=== PATIENT | male | born 1960 | race Caucasian/White ===

== ENCOUNTER 2023-03-09 12:25 | Observation (INO) ==
[2023-03-09] MEDS ORDERED: LORazepam 2 MG/1 ML VIAL IV STA (12:44)
[2023-03-09] MEDS ORDERED: SODIUM CHLORIDE 0.9% 500 ML IV SCH (12:45)
[2023-03-09 13:00] LABS: Basophils # (auto) 0.04 K/uL (0-0.2); Basophils % (auto) 0.6 %; Eosinophils # (auto) 0.16 K/uL (0-0.50); Eosinophils % (auto) 2.5 %; Hematocrit (blood only) 42.1 % (42.0-52.0); Immature Granulocytes # (auto) 0.03 K/uL (0.01-0.20); Immature Granulocytes % (auto) 0.5 %; Lymphocytes % (auto) 33.1 %; Mean Corpuscular Hemoglobin 31.8 pg (25.0-34.0); Mean Corpuscular Hgb Conc 35.6 g/dL (32.0-36.0); Mean Corpuscular Volume 89.4 fL (80.0-100.0); Mean Platelet Volume 10.7 fL (9.4-12.4); Monocytes # (auto) 0.36 K/uL (0.11-0.59); Monocytes % (auto) 5.7 %; Neutrophils # (auto) 3.65 K/uL (1.40-6.50); Neutrophils % (auto) 57.6 %; Platelet Count 226 K/uL (130-400); RDW Coefficient of Variation 12.5 % (11.5-14.5); RDW Standard Deviation 41.1 fL (36.4-46.3); Red Blood Count 4.71 M/uL (4.70-6.10); White Blood Count 6.34 K/ul (4.8-10.8)
[2023-03-09 13:07] LABS: Albumin Globulin Ratio 1.9 (0.9-2); Albumin Level 4.6 gm/dl (3.4-5.0); BUN Creatinine Ratio 17.9 (10-20); Bilirubin,Total 0.5 mg/dl (0.2-1.0); Calcium 9.4 mg/dl (8.6-10.3); Creatinine Clr Calc Pharmacy 77.1 ml/min; Globulin 2.4 gm/dl (2.5-4.0); Potassium 3.2 mmol/L (3.5-5.1)
[2023-03-09 13:13] LABS: Troponin I High Sensitivity 5.6 pg/ml (0-20)
--- NOTE | 2023-03-09 13:13 | Emergency Department Note ---
Impression & Plan Weakness, Tremor, Epilepsy, Ambulatory dysfunction ED Provider Note Provider: Mitchel Mulligan MD DATE OF SERVICE: 03/09/2023 CHIEF COMPLAINT: Weakness, migraine, seizure HISTORY OF PRESENT ILLNESS: Patient is a 62-year-old gentleman history of hypertension, BPH, migraines, and epilepsy presenting here today via ambulance from his home. Under significant stress over the past week regarding dog's illness and dog had to be put down yesterday. Family in town for this. Has had decent migraine for most of the weekend had a Toradol shot yesterday as well as been on some steroid and olanzapine for cycle breaker. Follows with neurology at [facility] in [place]. Has PCP in the [place] area. Evidently while the dog was being put down yesterday had a generalized event where he remembers things but could not move his body and had generalized shaking. This lasted briefly. No trauma reported. Has had recurrent episodes of some twitching of his arm and this morning some twitching of his arm and neck. Has a history of some focal seizures like this. No other grand mal seizures or loss of consciousness reported. Denies recent illness. Did not sleep well last night. Did have breakfast okay but then twitching events occurred this morning and he became very weak and was unable to get up and get around. Currently her states his headaches actually been improved since the Toradol shot yesterday earlier but now having generalized weakness. Denies numbness. Denies headache or dizzin ess. Denies any associated pain. States compliance with medications including meds this morning. PAST MEDICAL HISTORY: As noted above MEDICATIONS: Reviewed home medications with him and his at bedside SOCIAL HISTORY: PHYSICAL EXAM: GENERAL: alert and oriented in no acute distress on stretcher fatigued in appearance with at bedside Head: normocephalic and atraumatic EYES: No injection, discharge or icterus. PERRL, EOMI. NECK: Trachea midline. Supple. ENT: Mucous membranes pink and moist. LUNGS: Airway patent. No retractions. Breath sounds clear with good air entry bilaterally. HEART: Regular rate and rhythm. No chest wall tenderness ABDOMEN: Soft and non-tender, without guarding or rebound. SKIN: Acyanotic, warm, dry, without rashes EXTREMITIES: Without swelling, tenderness or deformity NEUROLOGICAL: No aphasia. No facial droop or slurred speech. Moving all extremities but 3 out of 4 strength in all 4 extremities. Barely able to lift legs off bed to gravity. Weakened handgrip symmetric bilaterally EK bpm normal sinus rhythm. No PVC or PAC. No acute ST segment elevation or depression with a QTc of 444. CONTINUOUS CARDIAC MONITORING: was ordered and showed a heart rate of 60s bpm in normal sinus rhythm Patient's laboratory studies and imaging reviewed. Differential includes Infection, dehydration, metabolic abnormality, hypo/hyperglycemia, electrolyte disturbance, cardiac sources, neurologic, as well as other pathologies. IMPRESSION/MEDICAL DECISION MAKING: Patient without significant focal deficit. No trauma reported. Has some generalized weakness. No headache. Does have a significant history of epilepsy as well as migraines. Unclear if this was a true generalized event yesterday versus may be some focal seizures given his history that have been occurring. Has been under significant stress and not sleeping well. Denies infectious symptoms. Basic blood work obtained. We will give a small mount of fluid as well as a little bit of Ativan to help with symptoms. Some of this may be related to history deprivation and stress level. Does not appear meningitic. Doubt CVA given lack of focality of his exam. Blood work is anemia or leukocytosis. Slight hypokalemia very minimal. No signs of significant electrolyte abnormality or anion gap. No signs of hepatitis or troponin elevation. CK just above the normal baseline possibly slightly increased due to his increased muscle activity recently. Negative COV ID. Topiramate and lamotrigine level send out. Reassessed the patient is having some improvement after an hour or 2. Did rest some here. Attempted to sit him up and he is able to do this but unable to stand due to weakness. Occasionally having some twitching of his legs but conscious during these periods. Not clear that this is seizure activity. Discussed with him and his options this point including further observation here and he wished to wait for another hour to arrest and see if things continue to improve. On reassessment after an hour and a half the patient still states he feels some internal energy and that he is not strong enough to sit up and walk. Discussed staying for further observation and neurological evaluation. Again some component of stress stress of the last several days likely contributing but not clearly having multiple seizures here. DIAGNOSIS: Weakness, tremor, epilepsy DISPOSITION: Hospitalist will evaluate Patient was agreeable with this plan. Past Med/Surg History Medical History (Updated 04/15/23 @ 17:50 by Mitchel Mulligan M.D.) BPH (benign prostatic hyperplasia) GERD (gastroesophageal reflux disease) Hx of migraines Hypertension Surgical History (Updated 03/23/22 @ 14:07 by Donnie Bhatka) No significant past surgical history Social History (Updated 03/23/22 @ 14:07 by Donnie Bhakta) Smoking Status: Current some day smoker Tobacco Type: Cigars Preferred Language: German marital status: current occupational status: retired Feels Safe at Home: Yes Allergies Allergies Allergy/AdvReac Type Severity Reaction Status Date / Time Penicillins Allergy Intermediate HIVES A Verified 03/09/23 15:26 CHILD moxifloxacin [From Avelox] AdvReac Severe passed out Verified 03/09/23 15:26 Home Meds Home Medications Medication Instructions Recorded Confirmed albuterol sulfate 90 mcg/actuation 90 mcg inhalation DIRECTED PRN 03/23/22 03/09/23 aerosol inhaler (Ventolin HFA) Shortness Of Breath Or Wheezing amitriptyline 25 mg tablet 25 mg PO HS 03/23/22 03/09/23 lamotrigine 100 mg tablet 100 mg PO BID 03/23/22 03/09/23 metoprolol succinate 50 mg 50 mg PO QAM 03/23/22 03/09/23 tablet,extended release 24 hr pantoprazole 40 mg tablet,delayed 40 mg PO QAM 03/23/22 03/09/23 release rizatriptan 10 mg disintegrating 10 mg PO QAM PRN Migraine Headache 03/23/22 03/09/23 tablet tamsulosin 0.4 mg capsule 0.4 mg PO QPM 03/23/22 03/09/23 topiramate 200 mg capsule,extended 200 mg PO QAM 03/23/22 03/09/23 release 24 hr (Trokendi XR) triamterene 75 1 tab PO QAM 03/23/22 03/09/23 mg-hydrochlorothiazide 50 mg tablet Lactobacillus acidophilus 10 10,000 mmu cells PO DAILY 03/09/23 03/09/23 billion cell capsule (Probiotic) aspirin 81 mg tablet,delayed 81 mg PO DAILY 03/09/23 03/09/23 release atogepant 60 mg tablet (Qulipta) 60 mg PO DAILY 03/09/23 03/09/23 cholecalciferol (vitamin D3) 10 10 mcg PO DAILY 03/09/23 03/09/23 mcg (400 unit) capsule (Vitamin D3) multivitamin 1 tab PO DAILY 03/09/23 03/09/23 olanzapine 2.5 mg tablet See Rx Instructions .Route .COMPLEX 03/09/23 03/09/23 omega-3 fatty acids 1,250 mg 1,250 mg PO DAILY 03/09/23 03/09/23 capsule onabotulinumtoxinA 200 unit 0 unit subcut DIRECTED 03/09/23 03/09/23 solution for injection (Botox) ondansetron HCl 4 mg tablet 4 mg PO DIRECTED PRN N/V WITH 03/09/23 03/09/23 MIGRAINE MARTINEZ. Results & Data (ED) Vital Signs Vital Signs - 24 hr 03/09/23 12:36 03/09/23 12:44 03/09/23 12:48 Temperature 36.8 C Temperature Source Oral Pulse Rate 68 Pulse Rate from SpO2 Sensor Pulse Rhythm Regular Pulse Strength Normal Respiratory Rate 20 Respiratory Effort / Characteristics Non-Labored Spontaneous Respiratory Depth Normal Blood Pressure 158/91 H Blood Pressure Mean 113 Pulse Oximetry 97 92 91 Oxygen Delivery Method Room Air Room Air Room Air Oxygen Flow Rate 0 Sepsis Recent Fever Within 48 Hours No Sepsis New/Unexplained Change in Mental Status N/A Sepsis Action Taken by Nursing No Action Required 03/09/23 13:00 03/09/23 13:30 03/09/23 14:00 Temperature Temperature Source Pulse Rate 65 68 64 Pulse Rate from SpO2 Sensor 69 64 Pulse Rhythm Pulse Strength Respiratory Rate 17 17 Respiratory Effort / Characteristics Respiratory Depth Blood Pressure 131/86 122/72 Blood Pressure Mean 101 88 Pulse Oximetry 98 98 Oxygen Delivery Method Oxygen Flow Rate Sepsis Recent Fever Within 48 Hours Sepsis New/Unexplained Change in Mental Status Sepsis Action Taken by Nursing 03/09/23 14:30 03/09/23 17:13 Temperature Temperature Source Pulse Rate 62 83 Pulse Rate from SpO2 Sensor 64 Pulse Rhythm Pulse Strength Respiratory Rate 13 Respiratory Effort / Characteristics Respiratory Depth Blood Pressure 141/69 H Blood Pressure Mean 93 Pulse Oximetry 97 Oxygen Delivery Method Oxygen Flow Rate Sepsis Recent Fever Within 48 Hours Sepsis New/Unexplained Change in Mental Status Sepsis Action Taken by Nursing Laboratory Data 03/09/23 12:45 03/09/23 12:44 Lab Results 03/09/23 03/09/23 03/09/23 Range/Units 12:44 12:45 12:45 WBC 6.34 (4.8-10.8) K/ul RBC 4.71 (4.70-6.10) M/uL Hgb 15.0 (14.0-18.0) g/dl Hct 42.1 (42.0-52.0) % MCV 89.4 (80.0-100.0) fL MCH 31.8 (25.0-34.0) pg MCHC 35.6 (32.0-36.0) g/dL RDW Std Deviation 41.1 (36.4-46.3) fL RDW Coeff of [place] 12.5 (11.5-14.5) % Plt Count 226 (130-400) K/uL MPV 10.7 (9.4-12.4) fL Immature Gran % (Auto) 0.5 % Neut % (Auto) 57.6 % Lymph % (Auto) 33.1 % [place] % (Auto) 5.7 % Eos % (Auto) 2.5 % Baso % (Auto) 0.6 % Neut # (Auto) 3.65 (1.40-6.50) K/uL Lymph # (Auto) 2.10 (1.2-3.4) K/uL [place] # (Auto) 0.36 (0.11-0.59) K/uL Eos # (Auto) 0.16 (0-0.50) K/uL Baso # (Auto) 0.04 (0-0.2) K/uL Immature Gran # (Auto) 0.03 (0.01-0.20) K/uL Sodium 139 (136-145) mmol/L Potassium 3.2 L (3.5-5.1) mmol/L Chloride 103 (98-107) mmol/L Carbon Dioxide 25 (21-32) mmol/L Anion Gap 11 (3-11) BUN 20 (6-23) mg/dl Creatinine 1.12 (0.6-1.4) mg/dl Est Cr Clr Drug Dosing 77.1 ml/min Est GFR ( Amer) 80.0 ml/min Est GFR (Non-Af Amer) 69.0 ml/min BUN/Creatinine Ratio 17.9 (10-20) Glucose 149 H (70-99(Fasting)) mg/dl Calcium 9.4 (8.6-10.3) mg/dl Magnesium 2.0 (1.7-2.4) mg/dl Total Bilirubin 0.5 (0.2-1.0) mg/dl AST 34 (13-39) U/L ALT 37 (7-52) U/L Alkaline Phosphatase 58 (34-104) U/L Total Creatine Kinase 258 H (30-223) U/L Troponin I High Sens 5.6 (0-20) pg/ml Total Protein 7.0 (6.0-8.3) gm/dl Albumin 4.6 (3.4-5.0) gm/dl Globulin 2.4 L (2.5-4.0) gm/dl Albumin/Globulin Ratio 1.9 (0.9-2) TSH 0.622 (0.300-4.500) uIu/ml Urine Color Urine Appearance (Clear) Urine pH (4.5-7.5) Ur Specific [place] (1.000-1.030) Urine Protein (Negative) Urine Glucose (UA) (Negative) Urine Ketones (Negative) Urine Blood (Negative) Urine Nitrite (Negative) Urine Bilirubin (Negative) Urine Urobilinogen (Negative) Ur Leukocyte Esterase (Negative) SARS-CoV-2, RNA, NAAT (NEGATIVE) 03/09/23 03/09/23 Range/Units 12:54 13:34 WBC (4.8-10.8) K/ul RBC (4.70-6.10) M/uL Hgb (14.0-18.0) g/dl Hct (42.0-52.0) % MCV (80.0-100.0) fL MCH (25.0-34.0) pg MCHC (32.0-36.0) g/dL RDW Std Deviation (36.4-46.3) fL RDW Coeff of [place] (11.5-14.5) % Plt Count (130-400) K/uL MPV (9.4-12.4) fL Immature Gran % (Auto) % Neut % (Auto) % Lymph % (Auto) % [place] % (Auto) % Eos % (Auto) % Baso % (Auto) % Neut # (Auto) (1.40-6.50) K/uL Lymph # (Auto) (1.2-3.4) K/uL [place] # (Auto) (0.11-0.59) K/uL Eos # (Auto) (0-0.50) K/uL Baso # (Auto) (0-0.2) K/uL Immature Gran # (Auto) (0.01-0.20) K/uL Sodium (136-145) mmol/L Potassium (3.5-5.1) mmol/L Chloride (98-107) mmol/L Carbon Dioxide (21-32) mmol/L Anion Gap (3-11) BUN (6-23) mg/dl Creatinine (0.6-1.4) mg/dl Est Cr Clr Drug Dosing ml/min Est GFR ( Amer) ml/min Est GFR (Non-Af Amer) ml/min BUN/Creatinine Ratio (10-20) Glucose (70-99(Fasting)) mg/dl Calcium (8.6-10.3) mg/dl Magnesium (1.7-2.4) mg/dl Total Bilirubin (0.2-1.0) mg/dl AST (13-39) U/L ALT (7-52) U/L Alkaline Phosphatase (34-104) U/L Total Creatine Kinase (30-223) U/L Troponin I High Sens (0-20) pg/ml Total Protein (6.0-8.3) gm/dl Albumin (3.4-5.0) gm/dl Globulin (2.5-4.0) gm/dl Albumin/Globulin Ratio (0.9-2) TSH (0.300-4.500) uIu/ml Urine Color Yellow Urine Appearance Clear (Clear) Urine pH 7.5 (4.5-7.5) Ur Specific [place] 1.010 (1.000-1.030) Urine Protein Negative (Negative) Urine Glucose (UA) Negative (Negative) Urine Ketones Negative (Negative) Urine Blood Negative (Negative) Urine Nitrite Negative (Negative) Urine Bilirubin Negative (Negative) Urine Urobilinogen Negative (Negative) Ur Leukocyte Esterase Negative (Negative) SARS-CoV-2, RNA, NAAT NEGATIVE (NEGATIVE) Administered Medications Discontinued Medications Sodium Chloride (Nss) 500 mls @ 999 mls/hr IV .Q31M JALEN Stop: 03/09/23 13:15 Last Infusion: 03/09/23 14:46 Dose: 0 mls/hr Documented By: Admin: 03/09/23 13:29 Dose: 999 mls/hr Documented By: AM Lorazepam (Lorazepam 2 Mg/1 Ml Vial) 0.5 mg IV NOW STA Stop: 03/09/23 12:45 Last Admin: 03/09/23 13:29 Dose: 0.5 mg Documented By: AM Discharge Plan Visit Data Chief Complaint: Weakness Stated Complaint: WEAK, UNABLE TO AMBULATE ED Provider: Mitchel Mulligan Discharge Problem: Weakness, Tremor, Epilepsy, Ambulatory dysfunction Patient Disposition: Being Evaluated by Hospitalist Forms Stand Alone Forms: My [facility] Prescriptions Prescriptions: No Action metoprolol succinate 50 mg tablet extended release 24 hr 50 mg PO QAM amitriptyline 25 mg tablet 25 mg PO HS tamsulosin 0.4 mg capsule 0.4 mg PO QPM rizatriptan 10 mg tablet,disintegrating 10 mg PO QAM PRN (Reason: Migraine Headache) pantoprazole 40 mg tablet,delayed release (DR/EC) 40 mg PO QAM triamterene-hydrochlorothiazid 75-50 mg tablet 1 tab PO QAM albuterol sulfate [Ventolin HFA] 90 mcg/actuation HFA aerosol inhaler 90 mcg INHALATION DIRECTED PRN (Reason: Shortness Of Breath Or Wheezing) Rx Instructions: 2 to 4 puffs as needed lamotrigine 100 mg tablet 100 mg PO BID topiramate [Trokendi XR] 200 mg capsule,extended release 24hr 200 mg PO QAM multivitamin Tablet 1 tab PO DAILY ondansetron HCl [Zofran] 4 mg Tablet 4 mg PO DIRECTED PRN (Reason: N/V WITH MIGRAINE MARTINEZ.) olanzapine 2.5 mg tablet See Rx Instructions .ROUTE .COMPLEX Rx Instructions: STARTED 03/03/23 FOR 7 DAYS, ENDS 03/10/23. mg aspirin 81 mg Tablet,Delayed Release (Dr/Ec) 81 mg PO DAILY cholecalciferol (vitamin D3) [Vitamin D3] 10 mcg (400 unit) Capsule 10 mcg PO DAILY omega-3 fatty acids 1,250 mg Capsule 1,250 mg PO DAILY Botox 200 unit Recon Soln 0 unit subcut DIRECTED Rx Instructions: PER PT "QUARTERLY" Probiotic 10 billion cell Capsule 10,000 mmu cells PO DAILY Qulipta 60 mg tablet 60 mg PO DAILY Referrals Referrals: Mitchell Gonsalves MD [Primary Care Provider] -
[2023-03-09 13:56] LABS: Appearance Urine Clear (Clear); Bilirubin Urine Negative (Negative); Blood Urine Negative (Negative); Color Urine Yellow; Glucose Urine UA Negative (Negative); Ketones Urine Negative (Negative); Leukocyte Esterase Urine Negative (Negative); Nitrite Urine Negative (Negative); Protein Urine Negative (Negative); Urobilinogen Urine Negative (Negative); pH Urine 7.5 (4.5-7.5)
--- NOTE | 2023-03-09 18:05 | History & Physical Report ---
Date of Service March 09, 2023 Assessment & Plan (1) Weakness: Plan: attending: Dr. Garcia impression: 62-year-old male with history of seizures, hypertension, GERD, BPH, migraines, complex migraines with acute presentation for weakness and ambulatory dysfunction. Difficulty with wuyg-gi-[id number] bilaterally. Tremor of left upper extremity. No other focal neurological deficits. Patient does have significant lower extremity weakness. patient will be admitted under observation for MRI, MRA, neurological consult and Seizure precautions. * MRI, MRA head, MRA neck * seizure precautions * neurology has been consulted. I spoke personally with Dr. Brown and he will see the patient in the morning * toxicology levels of lamotrigine and topiramate are pending * check EKG in the morning (2) Epilepsy: Plan: * diagnosed several years ago and follows in [place] with [facility] * patient to request records and have them transfer to [facility] for completion of database * no changes in the levels of his antiseizure medications within the last 12 to 18 months. No new medications * further recommendations per neurology * patient has a follow-up appointment in March 22, 2023 with neurology in [place] and encouraged to follow-up with this appointment (3) Ambulatory dysfunction: Plan: * bilateral weakness of the lower extremities with associated tremor * check MRI to rule out cerebellar stroke * PT/OT evaluation * fall precautions (4) BPH (benign prostatic hyperplasia): Plan: * continue tamsulosin * monitor ins and outs (5) Hx of migraines: Plan: * no current complaints of headache, visual changes, aura * continue with topiramate and lamotrigine * rizatriptan as needed (6) GERD (gastroesophageal reflux disease): Plan: * continue pantoprazole * no current complaints (7) Hypertension: Plan: * continue metoprolol succinate 50 mg p.o. daily * vital signs per protocol Plan DVT prophylaxis: Avoid chemical prophylaxis until acute CVA is ruled out. JEREMIAH hose ordered to be applied bilaterally CODE STATUS discussed with patient with present. Patient requested a full resuscitation please refer to Dr. Garcia's addendum for further recommendations and corrections. History of Present Illness Chief Complaint: ambulatory dysfunction, lower extremity weakness Primary Care Provider: Mitchell Gonsalves MD attending: Dr. Garcia This is a 62-year-old male that has a past medical history including epilepsy, BPH, history of migraines, history of complex migraines, GERD, hypertension, anxiety, bronchitis, hypertension. patient is originally from the [facility]. He moved to [place] about 6 months ago. He has a history of epilepsy and has been followed by a neurologist in [place]. He was then referred to a specialist that [facility] in [place]. Patient is currently on lamotrigine grain as well as topiramate for combination treatment for complex migraines and history of seizures. Patient states that in the past he has had a prodrome of tremoring of the left hand and arm prior to his seizure. He reports that this started today. Patient also has had a significant mount of stress over the last several weeks. Yesterday his 17-year-old dog had to be put down and this was very traumatic for him. Patient also has multiple complex projects going on in his personal life and he has had to manage these. He has had significant loss of sleep and anxiety over juggling these tasks. He presented for evaluation today and was found to have potassium of 3.2 with a normal magnesium. All other labs appear to be within normal limits. Patient does have lamotrigine and topiramate levels pending. EKG was within normal limits. No chest pain or tightness. No headache. No visual changes. No slurred speech. Patient does note that over the last year or 18 months he has noticed increased difficulty with word finding and word association. Patient denies any acute fever, chills, sweats, rigors. No recent illness. He is up-to-date on his COVID vaccinations and currently is negative for COVID infection. He has no prior history of COVID or long COVID. He has no prior history of abnormal MRI or CT head. Patient does state that he is extremely weak and is unable to stand. He also has difficulty with sitting and notices increased tremor when he sits up. Patient was evaluated in the room with his present. She corroborated his history. Patient reports that he does have an advanced directive. He desires to be a full code and would request cardiopulmonary resuscitation. Allergies Allergy/AdvReac Type Severity Reaction Status Date / Time Penicillins Allergy Intermediate HIVES A Verified 03/09/23 15:26 CHILD moxifloxacin [From Avelox] AdvReac Severe passed out Verified 03/09/23 15:26 Home Medications Medication Instructions Recorded Confirmed Type albuterol sulfate 90 mcg/actuation 90 mcg inhalation DIRECTED PRN 03/23/22 03/09/23 History aerosol inhaler (Ventolin HFA) Shortness Of Breath Or Wheezing amitriptyline 25 mg tablet 25 mg PO HS 03/23/22 03/09/23 History lamotrigine 100 mg tablet 100 mg PO BID 03/23/22 03/09/23 History metoprolol succinate 50 mg 50 mg PO QAM 03/23/22 03/09/23 History tablet,extended release 24 hr pantoprazole 40 mg tablet,delayed 40 mg PO QAM 03/23/22 03/09/23 History release rizatriptan 10 mg disintegrating 10 mg PO QAM PRN Migraine Headache 03/23/22 03/09/23 History tablet tamsulosin 0.4 mg capsule 0.4 mg PO QPM 03/23/22 03/09/23 History topiramate 200 mg capsule,extended 200 mg PO QAM 03/23/22 03/09/23 History release 24 hr (Trokendi XR) triamterene 75 1 tab PO QAM 03/23/22 03/09/23 History mg-hydrochlorothiazide 50 mg tablet Lactobacillus acidophilus 10 10,000 mmu cells PO DAILY 03/09/23 03/09/23 History billion cell capsule (Probiotic) aspirin 81 mg tablet,delayed 81 mg PO DAILY 03/09/23 03/09/23 History release atogepant 60 mg tablet (Qulipta) 60 mg PO DAILY 03/09/23 03/09/23 History cholecalciferol (vitamin D3) 10 10 mcg PO DAILY 03/09/23 03/09/23 History mcg (400 unit) capsule (Vitamin D3) multivitamin 1 tab PO DAILY 03/09/23 03/09/23 History olanzapine 2.5 mg tablet See Rx Instructions .Route .COMPLEX 03/09/23 03/09/23 History omega-3 fatty acids 1,250 mg 1,250 mg PO DAILY 03/09/23 03/09/23 History capsule onabotulinumtoxinA 200 unit 0 unit subcut DIRECTED 03/09/23 03/09/23 History solution for injection (Botox) ondansetron HCl 4 mg tablet 4 mg PO DIRECTED PRN N/V WITH 03/09/23 03/09/23 History MIGRAINE MARTINEZ. Past Med/Surg History Medical History (Updated 03/09/23 @ 17:58 by Trevor Turner PA-C) BPH (benign prostatic hyperplasia) Epilepsy GERD (gastroesophageal reflux disease) Hx of migraines Hypertension Surgical History (Updated 03/23/22 @ 14:07 by Donnie Bhakta) No significant past surgical history Social History (Updated 03/23/22 @ 14:07 by Donnie Bhakta) Smoking Status: Never smoker Tobacco Type: Cigars Second Hand Exposure: No; Do You Dip or Chew Tobacco: No; Tobacco Cessation Education Requested by Patient: No Hx Alcohol Use: Yes Alcohol type: beer, wine and hard liquor Hx Substance Use: No Preferred Language: Bulgarian Communication Ability: Effective Client Leader Required: No Beliefs That Will Affect Care: None marital status: Current Living Situation: Spouse current occupational status: retired Other Information That Helps Us Care for You: No Feels Safe at Home: Yes Safety Concerns: Feels Safe At This Time Assistive Devices: Walker Review of Systems Review of Systems: A total of 10 systems was reviewed and is negative other than as listed in the HPI Physical Exam Physical Exam: GENERAL : No acute distress EYES: No icterus, gaze conjugate. Pupils equal round and reactive to light. Extraocular movement is intact NOSE: No evidence of epistaxis. No evidence of septal breach MOUTH: No lesions or candidiasis. Tongue is midline NECK: Supple. No carotid bruits or stridor appreciated LUNGS: CTA B/L, no wheezes, rales or rhonchi. Good inspirational effort. No induced cough HEART: Regular, rate controlled. No appreciation of murmurs gallops or rubs ABDOMEN: Soft, NT, ND, BS Present. No tenderness to deep palpation. No guarding EXTREMITIES: No LE edema, pedal pulses intact and equal bilaterally. NEURO: A&OX3. No slurred speech. Tongue is midline. Pupils equal round and reactive to light and accommodation. Extraocular movements intact. Patient strength is equal and appropriate on the upper extremities. Toes are downgoing bilaterally. Deep tendon reflexes are 2 out of 4 to the brachial radialis, bicep, patellar tendons. patient does have difficulty with hccr-do-rjdy bilaterally right being worse than left. Patient does have a significant Increasing tremor of the right leg when doing odcq-ev-safi. It is also noted that when patient exerts his lower extremities he has increased tremor of the left hand. No pain with straight leg raise bilaterally. Rapid alternating movements intact and equal with fewlhb-ic-lsgm and rapid on movement of the finger. Patient is able to sit up but does not feel strong enough to stand. He was not challenged by this provider. Results & Data Results & Data Vital Signs (Past 12 Hours) Vital Signs Temp Pulse Resp BP Pulse Ox O2 Del Method O2 Flow Rate 03/09/23 17:13 83 03/09/23 14:30 62 13 141/69 H 97 03/09/23 14:00 64 17 122/72 98 03/09/23 13:30 68 17 131/86 98 03/09/23 13:00 65 03/09/23 12:48 91 Room Air 03/09/23 12:44 92 Room Air 0 03/09/23 12:36 36.8 C 68 20 158/91 H 97 Room Air Critical Care Results & Data Vital Signs (Past 12 Hours) Vital Signs Temp Pulse Resp BP Pulse Ox O2 Del Method O2 Flow Rate 03/09/23 17:13 83 03/09/23 14:30 62 13 141/69 H 97 03/09/23 14:00 64 17 122/72 98 03/09/23 13:30 68 17 131/86 98 03/09/23 13:00 65 03/09/23 12:48 91 Room Air 03/09/23 12:44 92 Room Air 0 03/09/23 12:36 36.8 C 68 20 158/91 H 97 Room Air Lab & Micro Results (Past 24 Hours) No Data to Display No Data to Display No Data to Display I & O Totals 24 Hours 03/08/23 03/09/23 03/10/23 06:59 06:59 06:59 Intake Total 500 / 500 Balance 500 / 500 Cumulative 03/09/23 12:18 thru 04/15/23 14:46 Intake Total 500 Balance 500 RT Ventilator Mngmt (Last Documented) Ventilator Ordered Settings Respiratory Rate 13 03/09/23 14:30 Ventilator - PT Measurements Respiratory Rate 13 Code Status & VTE Plan Code Status Full resuscitation VTE Prophylaxis Plan VTE Prophylaxis will be ordered: Yes Supervising Physician Co-Signing Physician Notes Patient seen and examined, chart reviewed, case discussed with Trevor Turner PA-C and I agree with the assessment and plan as above except as otherwise noted Labs and images reviewed 62-year-old male with a past medical history of epilepsy, BPH, migraines, GERD, anxiety, hypertension who is seen for weakness and difficulty with otyt-vm-oaib concerning for CVA. Patient has history of epilepsy well-controlled, pending records transfer. Antiseizure medications are stable and has been continued. Agree with MRI/MRA and completion of stroke work-up to rule out cerebellar stroke. At bedside patient is with focally worsened apzk-ku-nhgf on the right compared to left, otherwise sensation and strength are symmetrical. PG Care Time/CCT Total # of Minutes Spent Total Time Spent with Patient: Total time spent is greater than 50% in coordination of care (as documented) at patient's floor/unit and/or counseling patient: 60 minutes with patient and present in the room Coding Level of Care Code 07540 INT INP/OBS CARE 3/75MIN Diagnoses Weakness R53.1 Epilepsy G40.909 Epilepsy type: unspecified Ambulatory dysfunction R26.2 BPH (benign prostatic hyperplasia) N40.0 Hx of migraines Z86.69 GERD (gastroesophageal reflux disease) K21.9 Hypertension I10 Time Spent (min) 60 (2) Epilepsy Epilepsy type: unspecified
[2023-03-09] MEDS ORDERED: GADOBUTROL 10ML VIAL IV ONE (18:18)
--- NOTE | 2023-03-09 18:44 | Magnetic Resonance Report ---
MRI OF THE BRAIN COMBO CLINICAL HISTORY: Seizure. Lower extremity weakness. COMPARISON STUDY: No priors. TECHNIQUE: MRI of the brain was performed utilizing various T1 and T2-weighted sequences in the axial , sagittal, and coronal planes. Contrast-enhanced sequences were acquired following the administratio n of 9 cc of Gadavist. Examination was performed using the seizure protocol. FINDINGS: Brain parenchyma: The brain parenchyma is normal in appearance. There is no hemorrhage or mass effect . There is no restricted diffusion to suggest acute ischemia. No enhancing mass lesion is identified on the postcontrast images. Forbes-white matter differentiation is preserved. No extra-axial fluid giovanni ection is seen. The cerebellar tonsils are normal in configuration. Ventricles, sulci, and cisterns: Normal in configuration. Pituitary and sella: Unremarkable. Intracranial vasculature: The right vertebral artery flow void is diminutive. The remaining flow void s at the skull base are well-maintained. Orbits: The bony orbits are grossly intact. Orbital contents are normal in appearance. Sinuses and mastoids: Clear. Calvarium: Unremarkable. Cervical cord: Partially visualized cervical spinal cord is normal in morphology and signal intensity . IMPRESSION: No acute intracranial abnormality. ACT 112: Negative or not required by law. Electronically signed by: Trevor Valdes M.D. 03/09/2023 6:43 PM
--- NOTE | 2023-03-09 18:44 | Magnetic Resonance Report ---
MR ANGIOGRAM OF THE NECK COMBO CLINICAL HISTORY: Lower extremity weakness. Neurological change. Seizure. COMPARISON STUDY: No priors. TECHNIQUE: Axial 3-D jowb-zh-nuaens MR angiography of the neck is performed. Subsequently, following the IV administration of 9 cc of Gadavist. Coronal MR angiogram of the neck was performed to corrobor ate the findings. 3-D reformats are created and assessed. All measurements were calculated based on N ASCET criteria. FINDINGS: Visualized portions of the thoracic aorta are normal in caliber. The aortic arch demonstrat es standard 3-vessel anatomy. The subclavian arteries are widely patent bilaterally. The right common carotid artery is widely patent, as are the right internal and external carotid arteries. The left c ommon carotid artery is widely patent, as are the left internal and external carotid arteries. The ve rtebral arteries are patent. The left vertebral artery is dominant. The right vertebral artery is dim inutive and difficult to visualize. The visualized intracranial vessels at the skull base appear baltazar nt. IMPRESSION: Unremarkable MR angiogram of the neck ACT 112: Negative or not required by law. Electronically signed by: Trevor Valdes M.D. 03/09/2023 6:43 PM
--- NOTE | 2023-03-09 18:46 | Magnetic Resonance Report ---
MR ANGIOGRAM OF THE BRAIN CLINICAL HISTORY: Seizure. Lower extremity weakness. COMPARISON STUDY: MRI of the brain performed concurrently on 03/09/2023. TECHNIQUE: 3-D napc-dn-qeicrw MR angiography of the intracranial circulation is performed. 3-D tumble views are created and assessed. IV contrast was not administered for this examination. FINDINGS: The internal carotid arteries are widely patent bilaterally, as are the anterior and middle cerebral arteries. The right vertebral artery flow void at the skull base is not well-visualized. Th e left vertebral artery is dominant and the flow-void is maintained. The basilar artery and posterior cerebral arteries are patent. There is a right posterior communicating artery. No aneurysm is seen. IMPRESSION: 1. Unremarkable MR angiogram of the brain. 2. The right vertebral artery flow void is not well visualized at the skull base. The vessel was show n to be patent on today's contrast-enhanced MR angiogram of the neck. ACT 112: Negative or not required by law. Electronically signed by: Trevor Valdes M.D. 03/09/2023 6:44 PM
[2023-03-09] MEDS ORDERED: MAGNESIUM HYDROXIDE SUSP 30 ML UDC PO PRN (20:29)
[2023-03-09] MEDS ORDERED: POLYETHYLENE (MIRALAX) 17 GM PACK PO PRN (20:29)
[2023-03-09] MEDS ORDERED: ACETAMINOPHEN 325 MG TAB PO PRN (20:29)
[2023-03-09] MEDS ORDERED: ALUMINUM/MAGNESIUM SUSP 30 ML UDC PO PRN (20:29)
[2023-03-09] MEDS ORDERED: LORazepam 2 MG/1 ML VIAL IV PRN (20:29)
[2023-03-09] MEDS ORDERED: POTASSIUM CHLORIDE CRTAB 20 MEQ TABCR PO STA (20:29)
[2023-03-09] MEDS ORDERED: ONDANSETRON 4 MG OD TAB PO PRN (20:58)
[2023-03-09] MEDS: TAMSULOSIN HCL 0.4 MG CAP PO SCH (21:44)
[2023-03-09] MEDS: lamoTRIgine 100 MG TAB PO SCH (21:44)
[2023-03-09] MEDS ORDERED: MELATONIN 3 MG TAB PO STA (22:21)
--- NOTE | 2023-03-10 07:14 | Electrocardiogram Report ---
Test Reason : Blood Pressure : / mmHG Vent. Rate : 063 BPM Atrial Rate : 063 BPM P-R Int : 186 ms QRS Dur : 112 ms QT Int : 434 ms P-R-T Axes : 015 -17 030 degrees QTc Int : 444 ms Normal sinus rhythm Normal ECG No previous ECGs available Confirmed by Prashant Cortes ([id number]) on 03/10/2023 7:13:43 AM Referred By: Confirmed By:Alok Cortes
[2023-03-10 07:27] LABS: Hematocrit (blood only) 39.4 % (42.0-52.0); Hemoglobin 13.9 g/dl (14.0-18.0); Mean Corpuscular Hemoglobin 32.2 pg (25.0-34.0); Mean Corpuscular Hgb Conc 35.3 g/dL (32.0-36.0); Mean Corpuscular Volume 91.2 fL (80.0-100.0); Mean Platelet Volume 10.7 fL (9.4-12.4); Platelet Count 191 K/uL (130-400); RDW Standard Deviation 42.5 fL (36.4-46.3); Red Blood Count 4.32 M/uL (4.70-6.10); White Blood Count 6.09 K/ul (4.8-10.8)
[2023-03-10 07:42] LABS: BUN Creatinine Ratio 15.4 (10-20); Calcium 8.8 mg/dl (8.6-10.3); Creatinine Clr Calc Pharmacy 64.6 ml/min; Est GFR (African American) 71.5 ml/min; Est GFR (Non-African American) 61.7 ml/min; Potassium 3.6 mmol/L (3.5-5.1)
[2023-03-10] MEDS: METOPROLOL SUCC 50MG EXT REL TAB PO SCH (08:02)
[2023-03-10] MEDS: PANTOprazole 40 MG TAB PO SCH (08:02)
[2023-03-10] MEDS: TRIAMTERENE/HCTZ 37.5/25MG TAB PO SCH (08:02)
[2023-03-10] MEDS: OMEGA-3 (PURIFIED FISH OIL) 1 GM CAP PO SCH (08:02)
[2023-03-10] MEDS: MULTIVITAMIN TAB PO SCH (08:02)
[2023-03-10] MEDS: lamoTRIgine 100 MG TAB PO SCH ×2 (08:02→20:43)
[2023-03-10] MEDS: ASPIRIN 81 MG ECTAB PO SCH (08:02)
[2023-03-10] MEDS: CHOLECALCIFEROL 400 UNITS 10 MCG TAB PO SCH (08:03)
[2023-03-10] MEDS: ADVANCED PROBIOTIC 1250 MG CAPSULE PO SCH (08:03)
[2023-03-10] MEDS ORDERED: Nursing to Pharmacy Communication SCH (11:15)
[2023-03-10] MEDS ORDERED: QULIPTA 60 MG PO ONE ×2 (11:15→21:00)
[2023-03-10] MEDS ORDERED: TROKENDI 200 MG PO ONE (11:15)
--- NOTE | 2023-03-10 11:20 | Neurology Consultation ---
Date of Consultation March 10, 2023 Assessment & Plan (1) Epilepsy: Plan NEUROLOGY CONSULTATION Assessment & Plan: Impression: pt with stable seizure at this point. his b/l leg subjective leg weakness symptoms suggestive of nonorganic in nature and perhaps contributed by hypokalemia, stress, anxiety and post seizure weakness (which he reports he has had in the past, e.g. Tod's paralysis). Not suggestive of central localization. Recommendations: -reassured pt. suspect it will improve next 1-2 days. PT evaluation for his gait and any need for assisted device. pt can be discharged whenever he feels comfortable and suspect he can be discharged today or tomorrow pending his comfort level. no further inpt neurology work up needed at this point. he is going to establish new neurology clinic once he discharged, routine follow up is ok. treat hypokalemia. improve stress and sleep call again if new question. Dr. Regis Brown MD [facility] Neurology Chief Complaint: seizure History of Present Illness: pt with seizure disorder and admited for further evaluation for his b/l leg weakness. this morning feeling much improved. still some feeling dysmetria. mri brain and MRA head/neck negative. no seizures. pt admits under increase stress and lack of sleep for long time. pt also with hypokalemia. Admission/Initial HPI documentation: This is a 62-year-old male that has a past medical history including epilepsy, BPH, history of migraines, history of complex migraines, GERD, hypertension, anxiety, bronchitis, hypertension. patient is originally from the [facility]. He moved to [place] about 6 months ago. He has a history of epilepsy and has been followed by a neurologist in [place]. He was then referred to a specialist that [facility] in [place]. Patient is currently on lamotrigine grain as well as topiramate for combination treatment for complex migraines and history of seizures. Patient states that in the past he has had a prodrome of tremoring of the left hand and arm prior to his seizure. He reports that this started today. Patient also has had a significant mount of stress over the last several weeks. Yesterday his 17-year-old dog had to be put down and this was very traumatic for him. Patient also has multiple complex projects going on in his personal life and he has had to manage these. He has had significant loss of sleep and anxiety over juggling these tasks. He presented for evaluation today and was found to have potassium of 3.2 with a normal magnesium. All other labs appear to be within normal limits. Patient does have lamotrigine and topiramate levels pending. EKG was within normal limits. No chest pain or tightness. No headache. No visual changes. No slurred speech. Patient does note that over the last year or 18 months he has noticed increased difficulty with word finding and word association. Patient denies any acute fever, chills, sweats, rigors. No recent illness. He is up-to-date on his COVID vaccinations and currently is negative for COVID infection. He has no prior history of COVID or long COVID. He has no prior history of abnormal MRI or CT head. Patient does state that he is extremely weak and is unable to stand. He also has difficulty with sitting and notices increased tremor when he sits up. Patient was evaluated in the room with his present. She corroborated his history. Patient reports that he does have an advanced directive. He desires to be a full code and would request cardiopulmonary resuscitation. Past Medical History: See chart Meds: See chart I personally reviewed all of the medications Social & Family History: See chart Review of Systems: Per initial HPI on admission. Physical Exam: GEN: NAD HEENT: Normocephalic Neuro: Mental status:A & O x 3.No dysarthria or aphasia.No neglect. Fluent speech. No apraxia Cranial Nerves:II-XII intact Motor:Normal bulk and tone,5/5 strength upper limbs, 5-/5 lower legs b/l t/o. some give way weakness noted. Coordination:Intact upper limbs, questionable effort dependent b/l lower limbs dysmetria that is mild and improved with toe to finger b/l. Reflexes:+2 throughout, down going toes clara Sensation: Intact x 4 extremities to touch Chart reviewed I have spent more than 50% educating patient about potential diagnosis and neurological evaluation and coordinating care with patient's treatment team. Total time spent (including chart review and coordination of care): 80 min (this includes chart review). History of Present Illness Attending Physician: Orlando Gutiérrez MD Allergies Allergy/AdvReac Type Severity Reaction Status Date / Time Penicillins Allergy Intermediate HIVES A Verified 04/15/23 15:26 CHILD moxifloxacin [From Avelox] AdvReac Severe passed out Verified 03/09/23 15:26 Home Medications Medication Instructions Recorded Confirmed Type albuterol sulfate 90 mcg/actuation 90 mcg inhalation DIRECTED PRN 03/23/22 03/09/23 History aerosol inhaler (Ventolin HFA) Shortness Of Breath Or Wheezing amitriptyline 25 mg tablet 25 mg PO HS 03/23/22 03/09/23 History lamotrigine 100 mg tablet 100 mg PO BID 03/23/22 03/09/23 History metoprolol succinate 50 mg 50 mg PO QAM 03/23/22 03/09/23 History tablet,extended release 24 hr pantoprazole 40 mg tablet,delayed 40 mg PO QAM 03/23/22 03/09/23 History release rizatriptan 10 mg disintegrating 10 mg PO QAM PRN Migraine Headache 03/23/22 03/09/23 History tablet tamsulosin 0.4 mg capsule 0.4 mg PO QPM 03/23/22 03/09/23 History topiramate 200 mg capsule,extended 200 mg PO QAM 03/23/22 03/09/23 History release 24 hr (Trokendi XR) triamterene 75 1 tab PO QAM 03/23/22 03/09/23 History mg-hydrochlorothiazide 50 mg tablet Lactobacillus acidophilus 10 10,000 mmu cells PO DAILY 03/09/23 03/09/23 History billion cell capsule (Probiotic) aspirin 81 mg tablet,delayed 81 mg PO DAILY 03/09/23 03/09/23 History release atogepant 60 mg tablet (Qulipta) 60 mg PO DAILY 03/09/23 03/09/23 History cholecalciferol (vitamin D3) 10 10 mcg PO DAILY 03/09/23 03/09/23 History mcg (400 unit) capsule (Vitamin D3) multivitamin 1 tab PO DAILY 03/09/23 03/09/23 History olanzapine 2.5 mg tablet See Rx Instructions .Route .COMPLEX 03/09/23 03/09/23 History omega-3 fatty acids 1,250 mg 1,250 mg PO DAILY 03/09/23 03/09/23 History capsule onabotulinumtoxinA 200 unit 0 unit subcut DIRECTED 03/09/23 03/09/23 History solution for injection (Botox) ondansetron HCl 4 mg tablet 4 mg PO DIRECTED PRN N/V WITH 03/09/23 03/09/23 History MIGRAINE MARTINEZ. Patient History Medical History (Updated 03/09/23 @ 17:58 by Trevor Turner PA-C) BPH (benign prostatic hyperplasia) Epilepsy GERD (gastroesophageal reflux disease) Hx of migraines Hypertension Surgical History (Updated 03/23/22 @ 14:07 by Donnie Bhakta) No significant past surgical history Social History (Updated 03/23/22 @ 14:07 by Donnie Bhakta) Smoking Status: Never smoker Tobacco Type: Cigars Second Hand Exposure: No; Do You Dip or Chew Tobacco: No; Tobacco Cessation Education Requested by Patient: No Hx Alcohol Use: Yes Alcohol type: beer, wine and hard liquor Hx Substance Use: No Preferred Language: Kenyan Communication Ability: Effective Cargo Handler Required: No Beliefs That Will Affect Care: None marital status: Current Living Situation: Spouse current occupational status: retired Other Information That Helps Us Care for You: No Feels Safe at Home: Yes Safety Concerns: Feels Safe At This Time Results & Data Vital Signs (Past 12 Hours) Vital Signs Temp Pulse Resp BP Pulse Ox O2 Del Method 03/10/23 08:01 36.4 C L 70 17 128/76 95 Room Air (1) Epilepsy Epilepsy type: unspecified
--- NOTE | 2023-03-10 16:12 | Hospitalist Progress Note ---
Date of Service March 10, 2023 Assessment & Plan (1) Weakness: Plan: Acute/unstable resulting in ambulatory dysfunction - MRI, MRA head, MRA neck completed, no acute abnormalities appreciated - seizure & fall precautions - neurology has been consulted. - Seen by Dr. Brown, felt that this was c/w post-seizure weakness which could've been exacerbated by stress + hypokalemia - Appreciate assistance - PT/OT eval appreciated, recommending rehab - toxicology levels of lamotrigine and topiramate are pending (2) Epilepsy: Plan: Chronic/unstable (recently experienced 2 breakthrough seizures in last week) - diagnosed several years ago and follows in [place] with [facility] - patient to request records and have them transfer to [facility] for completion of database - no changes in the levels of his antiseizure medications within the last 12 to 18 months. No new medications - patient has a follow-up appointment in March 22, 2023 with neurology in [place] and encouraged to follow-up with this appointment (3) Hx of migraines: Plan: Chronic/stable - no current complaints of headache, visual changes, aura - continue with topiramate and lamotrigine - rizatriptan as needed (4) Hypertension: Plan: Chronic/stable - controlled, continue metoprolol succinate 50 mg p.o. daily Plan Patient is medically stable for discharge but the recommendation from therapy is for acute rehab, subsequently, he will remain hospitalized to facilitate appropriate dispo. Add Ambien 5mg at HS to help with insomnia. CM will be consulted to assist. Plan to be d/w Dr. Gutiérrez. Admission and Anticipated Discharge Date Admission Date: March 09, 2023 Subjective Patient was seen on daily rounds this morning. No further seizure activity. Reports that he did not sleep well yesterday and is requesting that he get something if he has to stay tonight. Reports that leg weakness is still present but has improved from yesterday. Not exactly keen on the idea of going to rehab but is willing to entertain it. Physical Exam Physical Exam: GENERAL: 62 yo well-developed, well-nourished M. NAD. LUNGS: Clear to auscultation bilaterally. No W/R/R. CARDIOVASCULAR: Regular rate and rhythm. NEUROLOGIC: A&O x3. No focal neurological deficits. lower leg weakness appreciate strength 4/5 b/l Results & Data Results & Data Vital Signs (Past 12 Hours) Vital Signs Temp Pulse Resp BP Pulse Ox O2 Del Method 03/10/23 15:30 36.6 C 65 16 145/68 H 96 Room Air 03/10/23 08:01 36.4 C L 70 17 128/76 95 Room Air Laboratory Results 03/10/23 06:58 03/10/23 06:58 PG Care Time/CCT Total # of Minutes Spent Total Time Spent with Patient: Total time spent is greater than 50% in coordination of care (as documented) at patient's floor/unit and/or counseling patient: Coding Level of Care Code 05925 SUB INP/OBS CARE 2/35MIN Diagnoses Weakness R53.1 Epilepsy G40.909 Epilepsy type: unspecified Hx of migraines Z86.69 Hypertension I10 (2) Epilepsy Epilepsy type: unspecified
[2023-03-10] MEDS: TAMSULOSIN HCL 0.4 MG CAP PO SCH (20:43)
[2023-03-10] MEDS: ZOLPIDEM TARTRATE 5 MG TAB PO PRN (20:44)
[2023-03-10] MEDS: RIZATRIPTAN BENZOATE MLT 10 MG TAB PO PRN (20:44)
[2023-03-11] MEDS: MULTIVITAMIN TAB PO SCH (07:36)
[2023-03-11] MEDS: OMEGA-3 (PURIFIED FISH OIL) 1 GM CAP PO SCH (07:37)
[2023-03-11] MEDS: TRIAMTERENE/HCTZ 37.5/25MG TAB PO SCH (07:37)
[2023-03-11] MEDS: CHOLECALCIFEROL 400 UNITS 10 MCG TAB PO SCH (07:37)
[2023-03-11] MEDS: METOPROLOL SUCC 50MG EXT REL TAB PO SCH (07:37)
[2023-03-11] MEDS: ADVANCED PROBIOTIC 1250 MG CAPSULE PO SCH (07:37)
[2023-03-11] MEDS: PANTOprazole 40 MG TAB PO SCH (07:37)
[2023-03-11] MEDS: lamoTRIgine 100 MG TAB PO SCH ×2 (07:37→20:37)
[2023-03-11] MEDS: ASPIRIN 81 MG ECTAB PO SCH (07:38)
--- NOTE | 2023-03-11 15:32 | Hospitalist Progress Note ---
Date of Service March 11, 2023 Assessment & Plan (1) Weakness: Plan: Acute/unstable resulting in ambulatory dysfunction ?Destin's paralysis - MRI, MRA head, MRA neck completed, no acute abnormalities appreciated - seizure & fall precautions - neurology has been consulted. - Seen by Dr. Brown, felt that this was c/w post-seizure weakness which could've been exacerbated by stress + hypokalemia - Appreciate assistance - PT/OT eval appreciated, recommending rehab - toxicology levels of lamotrigine and topiramate are pending (2) Epilepsy: Plan: Chronic/unstable (recently experienced 2 breakthrough seizures in last week) - diagnosed several years ago and follows in [place] with [facility] - patient to request records and have them transfer to [facility] for completion of database - no changes in the levels of his antiseizure medications within the last 12 to 18 months. No new medications - patient has a follow-up appointment in March 22, 2023 with neurology in [facility] and encouraged to follow-up with this appointment - pt requesting records be sent to his neurologist, will have staff get pt to sign SID and forward records (3) Hx of migraines: Plan: Chronic/stable - no current complaints of headache, visual changes, aura - continue with topiramate and lamotrigine - rizatriptan as needed (4) Hypertension: Plan: Chronic/stable - controlled, continue metoprolol succinate 50 mg p.o. daily Plan Patient is medically stable for discharge but the recommendation from therapy is for acute rehab. Referral sent to [facility] who can take patient as soon as insurance auth received. CM submitted for auth to pt's insurance, auth pending. Plan d/w Dr. Gutiérrez. Admission and Anticipated Discharge Date Admission Date: March 10, 2023 Subjective Patient was seen on daily rounds this morning. Reports that he was able to sleep yesterday. Feels the weakness is improving each day. Therapy recommending acute rehab, pt agreeable. Referral sent to [facility] and CM submitted for auth, awaiting insurance. Physical Exam Physical Exam: GENERAL: 62 yo well-developed, well-nourished M. NAD. LUNGS: Clear to auscultation bilaterally. No W/R/R. CARDIOVASCULAR: Regular rate and rhythm. NEUROLOGIC: A&O x3. No focal neurological deficits. lower leg weakness appreciate strength 5-/5 b/l Results & Data Results & Data Vital Signs (Past 12 Hours) Vital Signs Temp Pulse Resp BP Pulse Ox O2 Del Method 03/11/23 14:47 36.6 C 67 16 129/76 95 Room Air 03/11/23 08:00 Room Air 03/11/23 07:54 36.4 C L 69 16 144/86 H 94 Room Air Laboratory Results no labs drawn today PG Care Time/CCT Total # of Minutes Spent Total Time Spent with Patient: Total time spent is greater than 50% in coordination of care (as documented) at patient's floor/unit and/or counseling patient: Coding Level of Care Code 27137 SUB INP/OBS CARE 2/35MIN Diagnoses Weakness R53.1 Epilepsy G40.909 Epilepsy type: unspecified Hx of migraines Z86.69 Hypertension I10 (2) Epilepsy Epilepsy type: unspecified
[2023-03-11] MEDS ORDERED: Nursing to Pharmacy Communication SCH (20:30)
[2023-03-11] MEDS: QULIPTA 60 MG EXT SCH (20:32)
[2023-03-11] MEDS: TAMSULOSIN HCL 0.4 MG CAP PO SCH (20:37)
[2023-03-11] MEDS: RIZATRIPTAN BENZOATE MLT 10 MG TAB PO PRN (20:37)
[2023-03-11] MEDS: ZOLPIDEM TARTRATE 5 MG TAB PO PRN (20:37)
[2023-03-12] MEDS: PANTOprazole 40 MG TAB PO SCH (07:31)
[2023-03-12] MEDS: TRIAMTERENE/HCTZ 37.5/25MG TAB PO SCH (07:32)
[2023-03-12] MEDS: ADVANCED PROBIOTIC 1250 MG CAPSULE PO SCH (07:32)
[2023-03-12] MEDS: ASPIRIN 81 MG ECTAB PO SCH (07:32)
[2023-03-12] MEDS: OMEGA-3 (PURIFIED FISH OIL) 1 GM CAP PO SCH (07:32)
[2023-03-12] MEDS: MULTIVITAMIN TAB PO SCH (07:32)
[2023-03-12] MEDS: METOPROLOL SUCC 50MG EXT REL TAB PO SCH (07:32)
[2023-03-12] MEDS: lamoTRIgine 100 MG TAB PO SCH ×2 (07:32→20:29)
[2023-03-12] MEDS: CHOLECALCIFEROL 400 UNITS 10 MCG TAB PO SCH (07:33)
[2023-03-12] MEDS: RIZATRIPTAN BENZOATE MLT 10 MG TAB PO PRN ×2 (12:39→23:43)
--- NOTE | 2023-03-12 15:54 | Hospitalist Progress Note ---
Date of Service March 12, 2023 Assessment & Plan (1) Weakness: Plan: Acute/unstable resulting in ambulatory dysfunction ?Destin's paralysis - MRI, MRA head, MRA neck completed, no acute abnormalities appreciated - seizure & fall precautions - neurology has been consulted. - Seen by Dr. Brown, felt that this was c/w post-seizure weakness which could've been exacerbated by stress + hypokalemia - Appreciate assistance - PT/OT eval appreciated, recommending rehab - toxicology levels of lamotrigine and topiramate are pending (2) Epilepsy: Plan: Chronic/unstable (recently experienced 2 breakthrough seizures in last week) - diagnosed several years ago and follows in [place] with [facility] - patient to request records and have them transfer to [facility] for completion of database - no changes in the levels of his antiseizure medications within the last 12 to 18 months. No new medications - patient has a follow-up appointment in March 22, 2023 with neurology in [facility] and encouraged to follow-up with this appointment - pt requesting records be sent to his neurologist, will have staff get pt to sign SID and forward records (3) Hx of migraines: Plan: Chronic/stable - no current complaints of headache, visual changes, aura - continue with topiramate and lamotrigine - rizatriptan as needed (4) Hypertension: Plan: Chronic/stable - controlled, continue metoprolol succinate 50 mg p.o. daily Plan Patient is medically stable for discharge but the recommendation from therapy is for acute rehab. Referral sent to [facility] who can take patient as soon as insurance auth received. CM submitted for auth to pt's insurance, auth pending. Can d/c to rehab when auth received. Plan d/w Dr. Gutiérrez. Admission and Anticipated Discharge Date Admission Date: March 10, 2023 Subjective Patient seen on daily rounds this morning. Resting comfortably in bed. Hopeful that he will get authorization to go to [facility] today. No further seizure activity. Sleeping better with addition of Ambien. Physical Exam Physical Exam: GENERAL: 62 yo well-developed, well-nourished M. NAD. LUNGS: Clear to auscultation bilaterally. No W/R/R. CARDIOVASCULAR: Regular rate and rhythm. NEUROLOGIC: A&O x3. No focal neurological deficits. lower leg weakness appreciate strength 5-/5 b/l Results & Data Results & Data Vital Signs (Past 12 Hours) Vital Signs Temp Pulse Resp BP Pulse Ox O2 Del Method 03/12/23 15:20 36.6 C 65 18 148/82 H 94 Room Air 03/12/23 08:00 Room Air 03/12/23 07:44 36.3 C L 65 18 136/84 96 Room Air PG Care Time/CCT Total # of Minutes Spent Total Time Spent with Patient: Total time spent is greater than 50% in coordination of care (as documented) at patient's floor/unit and/or counseling patient: Coding Level of Care Code 46466 SUB INP/OBS CARE 1/25MIN Diagnoses Weakness R53.1 Epilepsy G40.909 Epilepsy type: unspecified Hx of migraines Z86.69 Hypertension I10 (2) Epilepsy Epilepsy type: unspecified
[2023-03-12] MEDS: QULIPTA 60 MG EXT SCH (20:27)
[2023-03-12] MEDS: TAMSULOSIN HCL 0.4 MG CAP PO SCH (20:28)
[2023-03-12] MEDS: ZOLPIDEM TARTRATE 5 MG TAB PO PRN (20:32)
--- NOTE | 2023-03-13 08:41 | Hospitalist Progress Note ---
Date of Service March 13, 2023 Assessment & Plan (1) Weakness: Plan: Acute/unstable resulting in ambulatory dysfunction ?Destin's paralysis - MRI, MRA head, MRA neck completed, no acute abnormalities appreciated - seizure & fall precautions - neurology has been consulted. - Seen by Dr. Brown, felt that this was c/w post-seizure weakness which could've been exacerbated by stress + hypokalemia - Appreciate assistance - PT/OT eval appreciated, recommending rehab - toxicology levels of lamotrigine and topiramate are pending (2) Epilepsy: Plan: Chronic/unstable (recently experienced 2 breakthrough seizures in last week) - diagnosed several years ago and follows in [place] with [facility] - patient to request records and have them transfer to [facility] for completion of database - no changes in the levels of his antiseizure medications within the last 12 to 18 months. No new medications - patient has a follow-up appointment in March 22, 2023 with neurology in [facility] and encouraged to follow-up with this appointment - pt requesting records be sent to his neurologist, will have staff get pt to sign SID and forward records (3) Hx of migraines: Plan: Chronic/stable - no current complaints of headache, visual changes, aura - continue with topiramate and lamotrigine - rizatriptan as needed (4) Hypertension: Plan: Chronic/stable - controlled, continue metoprolol succinate 50 mg p.o. daily Plan Patient is medically stable for discharge but the recommendation from therapy is for acute rehab. Referral sent to [facility] who can take patient as soon as insurance auth received. CM submitted for auth to pt's insurance, auth pending. Can d/c to rehab when auth received. Plan d/w Dr. Gutiérrez. Admission and Anticipated Discharge Date Admission Date: March 10, 2023 Results & Data Results & Data Vital Signs (Past 12 Hours) Vital Signs Temp Pulse Pulse Resp BP Pulse Ox O2 Del Method 03/13/23 08:01 98.2 F 68 68 16 125/74 96 Room Air 03/12/23 21:00 97.3 F L 66 18 137/77 95 Room Air PG Care Time/CCT Total # of Minutes Spent Total Time Spent with Patient: Total time spent is greater than 50% in coordination of care (as documented) at patient's floor/unit and/or counseling patient: Coding Diagnoses Weakness R53.1 Epilepsy G40.909 Epilepsy type: unspecified Hx of migraines Z86.69 Hypertension I10 (2) Epilepsy Epilepsy type: unspecified
[2023-03-13] MEDS: ASPIRIN 81 MG ECTAB PO SCH (08:54)
[2023-03-13] MEDS: ADVANCED PROBIOTIC 1250 MG CAPSULE PO SCH (08:55)
[2023-03-13] MEDS: CHOLECALCIFEROL 400 UNITS 10 MCG TAB PO SCH (08:55)
[2023-03-13] MEDS: OMEGA-3 (PURIFIED FISH OIL) 1 GM CAP PO SCH (08:56)
[2023-03-13] MEDS: lamoTRIgine 100 MG TAB PO SCH (08:56)
[2023-03-13] MEDS: TRIAMTERENE/HCTZ 37.5/25MG TAB PO SCH (08:57)
[2023-03-13] MEDS: MULTIVITAMIN TAB PO SCH (08:57)
[2023-03-13] MEDS: METOPROLOL SUCC 50MG EXT REL TAB PO SCH (08:57)
[2023-03-13] MEDS: PANTOprazole 40 MG TAB PO SCH (08:58)
--- NOTE | 2023-03-13 19:37 | Discharge Summary ---
Date of Service March 13, 2023 Admission HPI Per Admitting Provider attending: Dr. Garcia This is a 62-year-old male that has a past medical history including epilepsy, BPH, history of migraines, history of complex migraines, GERD, hypertension, anxiety, bronchitis, hypertension. patient is originally from the [facility]. He moved to [place] about 6 months ago. He has a history of epilepsy and has been followed by a neurologist in [place]. He was then referred to a specialist that [facility] in [place]. Patient is currently on lamotrigine grain as well as topiramate for combination treatment for complex migraines and history of seizur es. Patient states that in the past he has had a prodrome of tremoring of the left hand and arm prior to his seizure. He reports that this started today. Patient also has had a significant mount of stress over the last several weeks. Yesterday his 17-year-old dog had to be put down and this was very traumatic for him. Patient also has multiple complex projects going on in his personal life a nd he has had to manage these. He has had significant loss of sleep and anxiety over juggling these tasks. He presented for evaluation today and was found to have potassium of 3.2 with a normal magnesium. All other labs appear to be within normal limits. Patient does have lamotrigine and topiramate levels pending. EKG was within normal limits. No chest pain or tightness. No headache. No visual changes. No slurred speech. Patient does note that over the last year or 18 months he has noticed increased difficulty with word finding and word association. Patient denies any acute fever, chills, sweats, rigors. No recent illness. He is up-to-date on his COVID vaccinations and currently is negative for COVID infection. He has no prior history of COVID or long COVID. He has no prior history of abnormal MRI or CT head. Patient does state that he is extremely weak and is unable to stand. He also has difficulty with sitting and notices increased tremor when he sits up. Patient was evaluated in the room with his present. She corroborated his history. Patient reports that he does have an advanced directive. He desires to be a full code and would request cardiopulmonary resuscitation. Principal Diagnosis todds paralysis gait dysfunction seizure disorder Discharge Exam Pt is awake and alert oriented x 3 Discharge Data Allergies Allergy/AdvReac Type Severity Reaction Status Date / Time Penicillins Allergy Intermediate HIVES A Verified 03/09/23 15:26 CHILD moxifloxacin [From Avelox] AdvReac Severe passed out Verified 03/09/23 15:26 Consultations 03/09/23 16:35 ED Decision to Admit Stat 03/09/23 20:29 Consult Neurology Routine Ordered Studies 03/09/23 17:19 MRI Angio Brain [MR angio head wo con] Stat MRI Angio Neck [MR angio neck wo/w con] Stat MRI Brain [MR brain wo/w con] Stat Hospital Course (1) Weakness: Acute/unstable resulting in ambulatory dysfunction ?Destin's paralysis - MRI, MRA head, MRA neck completed, no acute abnormalities appreciated - neurology consulted. Dr. Brown, felt that this was c/w post-seizure weakness which could've been exacerbated by stress + hypokalemia e - PT/OT eval appreciated, recommending rehab transfer to [facility] 03/13/23 - toxicology levels of lamotrigine and topiramate are pending (2) Epilepsy: Chronic/unstable (recently experienced 2 breakthrough seizures in last week) - diagnosed several years ago and follows in [place] with [facility] - patient to request records and have them transfer to [facility] for completion of database - no changes in the levels of his antiseizure medications within the last 12 to 18 months. No new medications - patient has a follow-up appointment in March 22, 2023 with neurology in [place] and encouraged to follow-up with this appointment - pt requesting records be sent to his neurologist, will have staff get pt to sign SID and forward records (3) Hx of migraines: Chronic/stable - no current complaints of headache, visual changes, aura - continue with topiramate and lamotrigine - rizatriptan as needed (4) Hypertension: Chronic/stable - controlled, continue metoprolol succinate 50 mg p.o. daily Total Time Total Time Spent Total Time Spent (In Minutes): It required less than 30 minutes to prepare this patient for discharge Discharge Plan Discharge Items Patient Disposition: Transfer Inpatient Rehab Fac Reason For Visit: WEAK, UNABLE TO AMBULATE Discharge Diagnosis: todds paralysis ambulation issues seizure disorder Activity: Per Instructions section Activity Comment: as per PT/OT at rehab Non-emergency contact: Primary Care Provider and Neurologist Call non-emergency contact if: your symptoms worsen Follow-up/Referrals: Mitchell Gonsalves MD [Primary Care Provider] - Diet: Regular Addtl Attending Provider Instructions: continue your medicaitons and rehab follow-up appointment in March 22, 2023 with neurology in [place] Pending Studies at Discharge: No Stand-Alone Forms: My [employer] Skilled Items Patient informed of condition?: Yes DNR: No Discharge Level of Care: Acute rehab Communicable Disease: No Discharge Prognosis: Stable Lines: None Urinary Catheter: No Medications and DC Order Prescriptions: Continued metoprolol succinate 50 mg tablet extended release 24 hr 50 mg PO QAM amitriptyline 25 mg tablet 25 mg PO HS tamsulosin 0.4 mg capsule 0.4 mg PO QPM rizatriptan 10 mg tablet,disintegrating 10 mg PO QAM PRN (Reason: Migraine Headache) pantoprazole 40 mg tablet,delayed release (DR/EC) 40 mg PO QAM triamterene-hydrochlorothiazid 75-50 mg tablet 1 tab PO QAM albuterol sulfate [Ventolin HFA] 90 mcg/actuation HFA aerosol inhaler 90 mcg INHALATION DIRECTED PRN (Reason: Shortness Of Breath Or Wheezing) Rx Instructions: 2 to 4 puffs as needed lamotrigine 100 mg tablet 100 mg PO BID topiramate [Trokendi XR] 200 mg capsule,extended release 24hr 200 mg PO QAM multivitamin Tablet 1 tab PO DAILY ondansetron HCl 4 mg Tablet 4 mg PO DIRECTED PRN (Reason: N/V WITH MIGRAINE MARTINEZ.) olanzapine 2.5 mg tablet See Rx Instructions .ROUTE .COMPLEX Rx Instructions: STARTED 03/03/23 FOR 7 DAYS, ENDS 03/10/23. mg aspirin 81 mg Tablet,Delayed Release (Dr/Ec) 81 mg PO DAILY cholecalciferol (vitamin D3) [Vitamin D3] 10 mcg (400 unit) Capsule 10 mcg PO DAILY omega-3 fatty acids 1,250 mg Capsule 1,250 mg PO DAILY Botox 200 unit Recon Soln 0 unit subcut DIRECTED Rx Instructions: PER PT "QUARTERLY" Probiotic 10 billion cell Capsule 10,000 mmu cells PO DAILY Qulipta 60 mg tablet 60 mg PO DAILY Discharge Orders: Discharge Order (Routine); Ordered 03/13/23 Ordered By: Orlando Quiroga/Other Patient Handouts: Epilepsy Seizure Affects on Body Admission Data Admit Date/Time: 03/10/23 17:15 Attending Provider: Orlando Gutiérrez Admit Provider: Brock Garcia Primary Care Provider: Mitchell Gonsalves Other Providers: Brock Garcia ; Regis Brown ; [facility] ; [facility] Other Interventions: Discharge Summary Assessment (RN) Last Done: 03/13/23 15:29 Coding Level of Care Code 32714 IN/OBS DISCH 30 MIN/LESS Diagnoses Weakness R53.1 Epilepsy G40.909 Epilepsy type: unspecified Hx of migraines Z86.69 Hypertension I10
[2023-03-14 12:32] LABS: Lamictal(Lamotrigine) 3.3 mcg/mL (2.5-15.0); Topiramate 8.6 mcg/mL (see note)
== END 2023-03-13 15:52 ==
LOC: 3N 12:25 → ED 12:25 → SUATTDRO 17:51 → 3N 20:10